=== PATIENT | female | born 1980 | race Caucasian/White ===

== ENCOUNTER → 2016-05-27 | Outpatient (REF) ==
[~2016-05-27] MED LIST: AMOXICILLIN 8751 TAB PO; ASACOL HD800 MG PO; CIPRO 500MG TA500 MG PO; FLAGYL500 MG PO; IBU-8800 MG PO; LORTAB 7.5/5001 TAB PO; MIRENA52 MG; MIRENA52 MG IU; NORCO 325 MG-101 TAB PO; NORCO 325 MG-7.1 TAB PO; PERCR 7.5 PO; PREDNISONE 5MG5 MG PO; PROMETHAZINE12.5 M5 PO; ULTRAM 50MG TAB50 MG PO; ZITHROMAX Z PA250 MG PO; ZOFRAN 4MG T4 MG/TAB PO
== END ==
LOC: ZLAB.WCH 10:14
DX: Z01.89 Encounter for other specified special examinations (principal)